=== PATIENT | male | born 1940 | race African-American/Black ===

== ENCOUNTER 2019-03-12 06:09 | Inpatient (IN) | payer MEDICARE ==
[2019-03-12 07:11] LABS: #Eosinphils 0.2 thou/uL (0.0-0.7); #Monocytes 0.2 thou/uL (0.11-0.59); #Neutrophils 2.7 thou/uL (1.40-6.50); %Basophils 0.3 % (0.0-1.0); %Lymphocytes 23.8 % (21.0-51.0); %Monocytes 4.9 % (0.0-10.0); %Neutrophils 66.9 % (42.0-75.0); Hemoglobin 13.8 g/dL (14.0-18.0); Mean Corpuscular HGB CONC 33.3 g/dL (32.0-36.0); Mean Corpuscular Hemoglobin 29.9 pg (27.0-31.0); Mean Corpuscular Volume 89.9 fL (78.0-98.0); Mean Platelet Volume 7.4 fL (7.4-10.4); Platelet Count 219 thou/uL (130-400); RBC Distribution Width 14.6 % (11.5-14.5); Red Blood Cell (RBC) Count 4.61 mill/uL (4.70-6.10)
[2019-03-12 07:29] LABS: ALT (SGPT) 16 U/L (8-55); AST (SGOT) 19 U/L (5-34); Albumin 3.9 g/dL (3.4-4.8); Alkaline Phosphatase 80 U/L (40-150); Anion Gap 14 mmol/L (10-20); BUN (Urea Nitrogen) 22 mg/dL (8.4-25.7); Bilirubin, Total 0.4 mg/dL (0.2-1.2); Calc. Creatinine Clearance 0 mL/min (70-130); Calcium 8.8 mg/dL (7.8-10.44); Carbon Dioxide 22 mmol/L (23-31); Chloride 107 mmol/L (98-107); Estimated GFR-MDRD 66; Globulin 3.5 g/dL (2.4-3.5); Glucose 95 mg/dL (83-110); Magnesium 2.8 mg/dL (1.6-2.6); Potassium 4.2 mmol/L (3.5-5.1); Protein, Total 7.4 g/dL (5.8-8.1); Sodium 139 mmol/L (136-145)
[2019-03-12] MEDS ORDERED: Aspirin Chewable 81 MG TAB ONE (08:02)
[2019-03-12] MEDS ORDERED: Furosemide 40 MG/4 ML VIAL ONE (08:02)
[2019-03-12] MEDS ORDERED: Nitroglycerin 2% Ointment 1 INCH/1 GM Packet ONE (08:02)
--- NOTE | 2019-03-12 08:40 | RAD ---
PORTABLE CHEST 1 VIEW: DATE: 03/12/2019. TIME: 6:29 a.m. HISTORY: Dyspnea. FINDINGS/IMPRESSION: There are changes of median sternotomy. The heart size is enlarged. The aorta is tortuous. The phu gs are expanded without lobar consolidation, pneumothoraces, carlos pulmonary edema, or large effusion s. POS: OFF
[2019-03-12] MEDS ORDERED: Acetaminophen 325 MG TAB PO PRN (09:21)
[2019-03-12] MEDS ORDERED: Zolpidem Tartrate 5 MG TAB PO PRN (09:21)
[2019-03-12] MEDS ORDERED: Ondansetron ODT 4 MG TAB PO PRN (09:21)
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
[2019-03-12] MEDS ORDERED: Enoxaparin Sodium 120 MG/0.8 ML SYRINGE SC SCH ×2 (11:30→21:00)
[2019-03-12] MEDS ORDERED: Enoxaparin Sodium 100 MG/ML SYRINGE SC SCH ×2 (12:00→21:00)
[2019-03-12 12:37] LABS: Troponin I 0.033 ng/mL (< 0.028)
[2019-03-12] MEDS ORDERED: Enoxaparin Sodium 100 MG/ML SYRINGE ONE (13:09)
[2019-03-12 14:29] VITALS: BMI 30.6
--- NOTE | 2019-03-12 14:34 | CON ---
DATE OF CONSULTATION: REASON FOR CONSULTATION: Bradycardia, dizziness, and atrial flutter. HISTORY OF PRESENT ILLNESS: Mr. Jacinto is a 78-year-old gentleman with previous history of CAD status post bypass surgery in addition to stent placement, who recently presented with dizziness. He is from [place], [place]. He was visiting family. He states he was normal state of health when he awoke this morning with dizziness. He states he felt like he was going to pass out. He was seen and evaluated in the emergency room, where he was found to be bradycardic with heart rate in the 30s and underlying atrial flutter. Currently, heart rate is in the upper 30s to 50s. The patient is currently asymptomatic. He denies chest pain, pressure, shortness of breath, or associated symptoms. Please see past medical history per Azucena Saldaña's full consultation. MEDICATIONS: Include; 1. Albuterol. 2. Amlodipine. 3. Aspirin. 4. Atorvastatin. 5. Symbicort. 6. Vitamin B12. 7. Hydrochlorothiazide. 8. Isosorbide. 9. Zestril. 10. Meloxicam. PHYSICAL EXAMINATION: GENERAL: Patient is a pleasant male, who is in no acute distress. The patient appears their stated age. VITAL SIGNS: Blood pressure 117/80, pulse 30s to 50s, respirations 20. NEUROLOGIC: The patient is alert and oriented x3 with no focal neurologic deficits. HEENT: Sclerae without icterus. Mouth has moist mucous membranes with normal pallor. NECK: No JVD. Carotid upstroke brisk. No bruits bilaterally. LUNGS: Clear to auscultation with unlabored respirations. BACK: No scoliosis or kyphosis. CARDIAC: Irregularly Irregular. Normal S1 and S2. No S3 or S4 noted. No significant rubs, murmurs, thrills, or gallops noted throughout the precordium. PMI is not displaced. There is no parasternal heave. ABDOMEN: Soft, nontender, nondistended. No peritoneal signs present. No hepatosplenomegaly. No abnormal striae. EXTREMITIES: 2+ femoral and 2+ dorsalis pedis pulses. No cyanosis, clubbing, or edema. SKIN: No gross abnormalities. PERTINENT LABORATORY DATA: Hemoglobin of 13.8. Creatinine 1.27. BNP of 311. Troponin 0.033. EKG shows atrial flutter with slow ventricular response. IMPRESSION: 1. New onset atrial flutter number. 2. Atrial flutter with slow ventricular response. 3. Coronary artery disease. 4. Status post bypass surgery. RECOMMENDATIONS: Mr. Jacinto is currently stable. He continues to dip in the upper 30s, but currently has no symptoms. My suspicion is as he gets up and moves around, he will likely develop symptoms. I have consulted with Dr. Luis Daniel Martinez to assess Mr. Jacinto for possible flutter ablation and likely need for pacemaker implantation. I would recommend echo with Doppler. I have called in a stat echo. Job ID: [id number]
[2019-03-12 15:48] LABS: Troponin I 0.021 ng/mL (< 0.028)
--- NOTE | 2019-03-13 01:09 | CON ---
DATE OF CONSULTATION: 03/12/2019 HISTORY OF PRESENT ILLNESS: I am seeing Mr. Jacinto at our [facility] as an electrophysiology physician practice consultant. His problems are: 1. Near syncopal spells with marked bradycardia associated with typical appearing atrial flutter with slow ventricular conduction. a. No prior history of atrial fibrillation or flutter. 2. Coronary artery disease with coronary artery bypass grafting surgery in 1997 and some stents 5-10 years ago. 3. History of hypertension, hypercholesterolemia. ALLERGIES: NONE NOTED. MEDICATIONS: At home included: 1. Norvasc. 2. Aspirin. 3. Lipitor. 4. Vitamin B12. 5. Hydrochlorothiazide. 6. Isosorbide mononitrate. 7. Lisinopril. 8. Meloxicam. 9. Nitroglycerin. SUBJECTIVE: Mr. Jacinto is here with episode of dizziness, near syncope. This has been most noticeable this morning. He also has significant dyspnea on exertion. Denies chest pains. Denies PND, orthopnea, or lower extremity edema. No stroke-like symptoms. No fever, chills, or cough. Rest of 12-point review of systems otherwise unremarkable. PAST MEDICAL HISTORY: As above. SOCIAL HISTORY: The patient denies smoking, EtOH, or drug abuse. He is lives in [place]. He is . His daughter is in the room. FAMILY HISTORY: Significant for coronary artery disease in mother and father. OBJECTIVE DATA: VITAL SIGNS: Blood pressure is 141/78, heart rate 44, respirations 17. Temperature, the patient is afebrile. GENERAL: Alert and oriented man, in no apparent distress. NECK: Supple. Jugular veins not distended. CHEST: Coarse without crackles. HEART: Sounds are regular to rate and rhythm. No murmur or gallop. ABDOMEN: Benign. Bowel sounds positive. EXTREMITIES: Lower extremities without edema, clubbing, or cyanosis. DATABASE: EKG reveals atrial flutter with slow ventricular response, rate of 48 beats per minute. Flutter wave appears to be typical, possibly isthmus dependent. LABORATORY DATA: White cell count 4.0, hemoglobin 13.8, platelet count is 219. Sodium 139, potassium 4.2, BUN is 22, creatinine 1.27. Troponin I 0.016, 0.033, and 0.021. BNP is 311. Chest x-ray shows no significant pulmonary or cardiac findings, but some cardiomegaly with tortuous aorta. ASSESSMENT AND PLAN: Mr. Jacinto is a very pleasant 78-year-old man with history of coronary artery disease, bypass surgery in the past, who presents with progressive dyspnea and dizziness, near syncope, noted to be in marked bradycardia. EKG suggestive of typical atrial flutter with slow ventricular rates in the absence of any AV talisha blocking agents. We have discussed the potential treatment options, which could include ELIAS and ablation, possible need for pacemaker. Also discussed I would perform a ELIAS, hence unknown duration of atrial flutter to rule out intracardiac clots. Medical management also discussed, although due to a slow heart rate, likely that is not a true option. Eventually agreed on proceeding with these plans. For now, continue anticoagulation, hold in the morning. Monitor for bradycardia. Consider dopamine if the heart rates become excessively slow. We will keep him n.p.o. after midnight. Thank you for allowing me to participate in care of this patient. Job ID: [id number]
[2019-03-13 05:24] LABS: Anion Gap 11 mmol/L (10-20); BUN (Urea Nitrogen) 19 mg/dL (8.4-25.7); Calc. Creatinine Clearance 96 mL/min (70-130); Calcium 8.7 mg/dL (7.8-10.44); Carbon Dioxide 24 mmol/L (23-31); Chloride 102 mmol/L (98-107); Estimated GFR-MDRD Greater than 90; Glucose 86 mg/dL (83-110); Potassium 3.9 mmol/L (3.5-5.1); Sodium 133 mmol/L (136-145)
--- NOTE | 2019-03-13 07:40 | PDOC.HOSPP ---
- Subjective Encounter Date: 03/13/19 Encounter Time: 07:39 Subjective: no chest pain, sob, dizziness - Objective Vital Signs & Weight: Vital Signs (12 hours) Temp 03/13/19 04:00 98.7 F 03/13/19 00:00 98.8 F 03/12/19 20:00 98.9 F Weight Weight 231 lb 11.293 oz Most Recent Monitor Data Heart Rate from ECG 47 NIBP 109/52 NIBP BP-Mean 71 Respiration from ECG 14 SpO2 94 I&O: 03/12/19 03/13/19 03/14/19 06:59 06:59 06:59 Intake Total 1200 Output Total 680 Balance 520 Result Diagrams: 03/12/19 07:00 03/13/19 04:29 Additional Labs: Accuchecks 03/12/19 20:41 POC Glucose 103 ROS - Medication Medications: Active Medications Generic Name Dose Route Start Last Admin Trade Name Freq PRN Reason Stop Dose Admin Enoxaparin Sodium 100 mg 03/12/19 21:00 03/12/19 20:42 Lovenox SC 100 mg 0900,2100 SIMON Administration - Exam awake alert Neck: no JVD Heart: no murmur, irregular Respiratory: CTAB Gastrointestinal: soft, non-tender, normal bowel sounds Extremities: no edema Hosp A/P (1) Atrial flutter Code(s): I48.92 - UNSPECIFIED ATRIAL FLUTTER Status: Acute Qualifiers: Atrial flutter type: typical Qualified Code(s): I48.3 - Typical atrial flutter (2) CAD (coronary artery disease) Code(s): I25.10 - ATHSCL HEART DISEASE OF [place] CORONARY ARTERY W/O ANG PCTRS Status: Chronic Qualifiers: Coronary Disease-Associated Artery/Lesion type: [place] artery [place] vs. transplanted heart: [place] heart Associated angina: without angina Qualified Code(s): I25.10 - Atherosclerotic heart disease of [place] coronary artery without angina pectoris (3) HTN (hypertension) Code(s): I10 - ESSENTIAL (PRIMARY) HYPERTENSION Status: Chronic Qualifiers: Hypertension type: essential hypertension Qualified Code(s): I10 - Essential (primary) hypertension (4) Dyslipidemia Code(s): E78.5 - HYPERLIPIDEMIA, UNSPECIFIED Status: Chronic - Plan hold lovenox ELIAS this am, probable RF ablation possible pacemaker
[2019-03-13] MEDS ORDERED: Lidocaine 1% (PF) 30 ML VIAL ONE (13:17)
[2019-03-13] MEDS ORDERED: Heparin 10,000 UNITS/1 ML VIAL ONE (14:06)
[2019-03-13] MEDS ORDERED: Meperidine HCl/PF 25 MG/ML VIAL ONE (14:06)
[2019-03-13] MEDS ORDERED: DOPamine 400 MG/D5W 250 ML 250 ML ONE (14:42)
[2019-03-13] MEDS ORDERED: Ondansetron HCl/PF 4 MG/2 ML Vial IVP PRN (16:57)
[2019-03-13] MEDS ORDERED: Promethazine HCl 25 MG/ML VIAL IM PRN (16:57)
[2019-03-13] MEDS ORDERED: Promethazine HCl 25 MG/ML VIAL SLOW IVP PRN (16:57)
--- NOTE | 2019-03-13 17:02 | RAD ---
Chest AP view INDICATION: Pacemaker insertion COMPARISON: March 12, 2019 FINDINGS: Lungs:There is bilateral interstitial edema Cardiac silhouette pulmonary vasculature:There is cardiomegaly and pulmonary vascular congestion Pleural spaces:No pleural effusion or pneumothorax is demonstrated. Upper abdomen:No abnormality seen. Osseous structures: No acute osseous abnormality. Additional findings:There is a new dual-lead pacemaker overlying the left chest wall. IMPRESSION: 1. Mild cardiomegaly with mild pulmonary vascular congestion and interstitial edema. 2. New 2-lead pacemaker overlying the left chest wall. No pneumothorax.
--- NOTE | 2019-03-13 18:01 | OP ---
DATE OF PROCEDURE: 03/13/2019 PROCEDURES PERFORMED: Electrophysiology study and radiofrequency ablation. REASON FOR PROCEDURE: Mr. Jacinto is a 78-year-old man with history of coronary artery disease, prior bypass surgery. He presenting with near syncopal spells with marked bradycardia in the setting of an atrial flutter. He underwent a ELIAS prior to the procedure and demonstrated no intracardiac clots, normal LV systolic function is seen, but moderate right atrial enlargement is noted and here for EP study and radiofrequency ablation procedure. DESCRIPTION OF PROCEDURE: The patient received propofol by Anesthesia specialist. After adequate level of sedation achieved, the right femoral venous area was prepped, draped, and anesthetized using subcutaneous lidocaine and under ultrasound guidance, two 8-[place]ston[place] short sheaths were introduced. Through this, a ThermoCool SFST catheter was advanced to the right atrium and 3D map of the right atrium, His bundle, CS, right ventricular area were performed. Pacing mapping and recording were performed in each location. Also, 10-pole deflectable catheter was advanced to the right atrium, then into the CS position from there. Left atrial pacing was also performed. The following findings were noted. Baseline rhythm was atrial flutter with a cycle length 320 milliseconds and overdrive pacing from the cavotricuspid isthmus entering the tachycardia and post pacing intervals equaling the tachycardia cycle length suggestive of cavotricuspid isthmus dependency. The CS activation was also typical for right atrial flutter. Following that, cavotricuspid isthmus ablation was performed with total of 9 ablation lesion delivered over 8 minutes at 40 gross. During the ablation, the atrial flutter terminated and subsequently proximal CS pacing started and transisthmus measurements were monitored and further ablation were delivered to achieve transisthmus block. Transisthmus time increased from baseline 50 milliseconds to 210 milliseconds. Transisthmus block was demonstrated by longest transisthmus time adjacent to the ablation line and shorter laterally. Following that, baseline studies were reported to perform. Abnormal sinus talisha function with sinus node recovery time 1559, corrected 609 milliseconds. No VA conduction was seen. AV Wenckebach cycle length was noted at 840 milliseconds. During sinus rhythm, the patient maintained marked bradycardia. 2:1 AV block is seen at sinus rate of 70. The HV interval was measured to be 54 milliseconds, which is adequate. The QRS remained narrow at 71 milliseconds. The QT interval was 333 milliseconds. Burst atrial pacing did not reinduce atrial arrhythmias. Decision was made to proceed to dual-chamber pacemaker implantation after this. IV dopamine was administered, and the ablation line was rechecked and found to be adequate. Cardiac silhouette did not change in the end of the procedure on fluoroscopy. The patient tolerated the procedure well, dual-chamber pacemaker implantation. Please see separate report. CONCLUSION: 1. Typical isthmus dependent atrial flutter at baseline. 2. Cavotricuspid isthmus ablation, terminated atrial flutter and increased the transisthmus time over 210 milliseconds. 3. Abnormal sinus talisha function. 4. Abnormal AV talisha function with High AV Wenckebach with slow ventricular rates. Still persisted post ablation. 5. Normal infra-Hisian conduction system is noted. PLAN: 1. Proceed with dual-chamber pacemaker implantation and for now, we will avoid AV talisha blocking agents if frequent RV pacing and worsening LV systolic function is seen. The patient may benefit from his bundle or BiV pacing in the future. 2. Consider resuming Eliquis post pacemaker implant for at least a month and continue monitoring for recurrent atrial arrhythmias. Job ID: [id number] [facility]
[2019-03-13] MEDS: Cephalexin 250 MG CAP PO SCH (21:19)
[2019-03-14] MEDS ORDERED: Non-Formulary Item 1 EACH (Atorvastatin Calcium [Lipitor] 80 MG) PO SCH (09:00)
[2019-03-14] MEDS ORDERED: VITAMIN B12 100 MCG PO SCH (09:00)
[2019-03-14] MEDS ORDERED: Lisinopril 5 MG TAB PO SCH (09:00)
[2019-03-14] MEDS ORDERED: Aspirin 81 mg Enteric Coated Tablet PO SCH (09:00)
[2019-03-14] MEDS ORDERED: Non-Formulary Item 1 EACH (Cyanocobalamin (Vitamin B-12) [Vitamin B-12] 100 MCG) PO SCH (09:00)
[2019-03-14] MEDS: Cephalexin 250 MG CAP PO SCH ×2 (09:21→15:04)
[2019-03-14 15:04] VITALS: BP 140/77; TEMP 98.9
[2019-03-14] MEDS ORDERED: Atorvastatin Calcium 40 MG TAB PO SCH (21:00)
--- NOTE | 2019-03-14 22:53 | ECHO ---
REFERRING PHYSICIAN: Dr. Domingo Fischer REASON FOR PROCEDURE: The patient is a 78-year-old man with prior history of coronary artery disease, prior bypass surgery who is presenting with near syncopal spell and dizziness and a sustained typical appearing atrial flu tter. Here for ablation. ELIAS was done prior to the procedure to rule out intracardiac clot since the lack of anticoagulation prior to admit. PROCEDURE: The patient received Propofol by Anesthesia specialist. The standard transesophageal ech ocardiogram probe was passed into the esophagus without difficulty. Patient tolerated the procedure well, no complications noted. RESULTS: Left atrium is moderate to severely enlarged about 5.5 cm in horizontal diameter. The left atrial ap pendage is well visualized contains no clots. Four out of four pulmonary veins were seen. The mitral valve has moderate central mitral regurgitation is seen. Left ventricular systolic function is preser natalie. LV wall thickening is normal. LV size is normal. The right sided chambers are markedly dilated. RV systolic function is reduced. The right atrium is about 5.9 cm in horizontal diameter. Mild tricus pid regurgitation noted only. Pericardial space without effusion. The aortic valve has three leaflet s without regurgitation or stenosis. Pulmonary valve is not well visualized. The visualized portion o f ascending and descending aorta without aneurysm, dissection or atheroma. CONCLUSION: 1. No intracardiac clots. 2. Normal left ventricular systolic function. 3. Marked RV dilation with reduced RV systolic function. 4. Severe right atrial and moderate to severe left atrial enlargement. 5. 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 6. Moderate MR, mild TR noted. No other valvular abnormality. PLAN: Proceed with ablation.
--- NOTE | 2019-03-15 08:30 | PRG ---
DATE OF SERVICE: 03/14/2019 SUBJECTIVE: Mr. Jacinto seems to be doing well one day after his ablation procedure and pacemaker implant. No new symptoms. He is feeling slightly better. OBJECTIVE: VITAL SIGNS: Blood pressure is 122/71, heart rate 69, respiratory rate 17, temperature 98.1 degrees Fahrenheit. GENERAL: Alert and oriented man, in no apparent distress. NECK: Supple. Jugular veins are not distended. CHEST: Coarse without crackles. HEART: Sounds are regular to rate and rhythm. No murmur or gallop. ABDOMEN: Benign. Bowel sounds positive. EXTREMITIES: Lower extremities are without edema, clubbing, or cyanosis. DATABASE: EKG is reviewed revealing an atrially paced rhythm and [place] AV conduction. Chest x-ray shows no pneumothorax, mild congestion, and pacemaker in place. ASSESSMENT: Mr. Jacinto is a 78-year-old man with a history of coronary artery disease, who presented with newly found atrial flutter with slow ventricular rates, markedly symptomatic. He underwent a transesophageal echocardiogram demonstrating no intracardiac clots and preserved left ventricular ejection fraction. He underwent a cavotricuspid isthmus ablation successfully terminating the atrial flutter, but residual marked AV talisha dysfunction with very low Wenckebach cycle length of 850 milliseconds were seen. He also had sinus node dysfunction and underwent a dual-chamber pacemaker implantation with a Medtronic device. Today, ventricular pacing is noted. The P-waves are improved at 1.6 mV. Impedance is normal at 399 and 475 ohms. Capture threshold is also adequate at 0.5 V at 0.4 milliseconds in both chambers. PLAN: At this point, continue routine post-pacemaker care antibiotics for a week. Wound check in 2 weeks possibly in [place] where the patient is from. I also would recommend interim anticoagulation and monitor for recurrent atrial arrhythmias. Start anticoagulation today after implant. Routine followup with his insurance sales producer is recommended. Long-term if worsening LVEF is seen, he might be a candidate for His bundle or Bi-V pacing. The patient is stable for discharge. Discussed with Dr. Wynn. I think he is stable for discharge.. Job ID: [id number] [facility]
--- NOTE | 2019-03-15 11:27 | DIS ---
DATE OF ADMISSION: 03/12/2019 DATE OF DISCHARGE: 03/14/2019 DISCHARGE DISPOSITION: Home. FOLLOWUP: 1. Follow up with primary care physician out of town in 1 week. 2. Follow up with Electrophysiology, Dr. Martinez, and Cardiology, Dr. Fischer, as needed. ALLERGIES: NO KNOWN DRUG ALLERGIES. DISCHARGE MEDICATIONS: 1. Eliquis 5 mg b.i.d. 2. Keflex 250 mg 3 times daily for next week. 3. All other home medications were left unchanged. DIAGNOSTIC TESTS: Troponin 0.033. Creatinine 0.93 at discharge and 1.27 on admission. Hemoglobin 13.8. Chest x-ray on admission was negative for acute findings. Echocardiogram showed left ventricular ejection fraction 40% to 45% with [id number] mitral regurgitation, [id number] tricuspid regurgitation, and mildly elevated pulmonary artery pressure. INPATIENT PROCEDURES: On March 13, 2019, the patient underwent transesophageal echocardiogram followed by ablation for atrial flutter. He also underwent dual-chamber pacemaker placement. INPATIENT CONSULTANTS: 1. Cardiology, Dr. Fischer. 2. Electrophysiology, Dr. Martinez. BRIEF HOSPITAL COURSE: The patient is a 78-year-old male, residing at [place], [place], presented to the hospital with near syncope. His workup was consistent with atrial flutter with variable block with heart rate in 30s and 40s at times. He underwent transesophageal echocardiogram followed by ablation for flutter along with dual-chamber pacemaker placement. Anticoagulation has been recommended. He understands the risk associated with anticoagulation. He was advised to follow up with his primary pre certification specialist in [place]. A copy of the echocardiogram has been provided. He has been cleared by consultants for discharge. FINAL DIAGNOSES: 1. New onset atrial flutter with slow ventricular response. 2. Status post dual-chamber pacemaker placement along with ablation for atrial flutter this admission. 3. Coronary artery disease, status post coronary artery bypass grafting. 4. Hypertension. 5. Hyperlipidemia. 6. Obesity with a BMI of 31.1. 7. Chronic anemia, normochromic normocytic. 8. Mild hyponatremia. 9. Elevated troponin probably secondary to demand ischemia/type 2 myocardial infarction. 10. Mild acute kidney injury. PLAN: Plan of care was discussed with the patient and the family at the bedside. They stated understanding. Job ID: [id number]
--- NOTE | 2019-03-16 14:42 | EKG ---
Test Reason : Blood Pressure : / mmHG Vent. Rate : 062 BPM Atrial Rate : 065 BPM P-R Int : 000 ms QRS Dur : 070 ms QT Int : 414 ms P-R-T Axes : 000 044 086 degrees QTc Int : 420 ms Atrial fibrillation Nonspecific T wave abnormality , probably digitalis effect Abnormal ECG Confirmed by COCO Timmons, DAXA ([id number]), communications editor IBAN ALVARES ([id number]) on 03/16/2019 2:42:23 PM Referred By: Confirmed By:DAXA SEPULVEDA M.D.
== END 2019-03-14 17:15 | disposition home or self-care (01) | DRG 274 ==
LOC: ERS 06:09 → ERHOLD 08:29 → CCU 13:47 → 2NO 03-13 17:41
PROVIDERS: ADMIT Internal Medicine; ATTEND Internal Medicine
PROC: 02583ZZ Destruction of Conduction Mechanism, Percutaneous Approach (ICD-10-PCS; principal; 2019-03-13)
PROC: 02K83ZZ Map Conduction Mechanism, Percutaneous Approach (ICD-10-PCS; 2019-03-13)
PROC: 4A023FZ Measurement of Cardiac Rhythm, Percutaneous Approach (ICD-10-PCS; 2019-03-13)
PROC: 4A0234Z Measurement of Cardiac Electrical Activity, Percutaneous Approach (ICD-10-PCS; 2019-03-13)
DX: I48.92 Unspecified atrial flutter (principal); I25.10 Atherosclerotic heart disease of native coronary artery without angina pectoris; E78.5 Hyperlipidemia, unspecified; I10 Essential (primary) hypertension; Z95.1 Presence of aortocoronary bypass graft; Z95.5 Presence of coronary angioplasty implant and graft; Z98.890 Other specified postprocedural states; Z79.899 Other long term (current) drug therapy; Z79.82 Long term (current) use of aspirin
CPT/HCPCS: 33208; 36005; 36415; 36416; 71045; 75820; 76942; 80048; 80053; 83735; 83880; 84443; 84484; 85025; 93005; 93010; 93306; 93312; 93613; 93621; 93623; 93653; 93798; 94640; 96374; C1732; C1769; C1785; C1898; J0690; J1265; J1644; J1650; J1940; J2001; J2175; J3490; J7620